=== PATIENT | female | born 1995 | race Caucasian/White ===

== ENCOUNTER 2017-04-19 15:34 | Emergency (ER) | payer OTHER ==
--- NOTE | 2017-04-19 16:05 | PD ---
HPI Chief Complaint ABD pain Date Seen: Apr 19, 2017 Travel History International Travel<30 Days: No Contact w/Intl Traveler<30Days: No History of Present Illness HPI Ms. Reynoso is a 22 y/o F presenting at 20/5 weeks gestation with ABD and L sided back pain. Patient states that after waking this morning she felt 6/10 pain on her L flank. She increased her oral fluids and has taken Tylenol with minimal improvement. She was able to take a short nap, however when she woke up her pain had relocated to her L hip crease consistent with round ligament pain. She then decided to present to the [facility]. Once arriving to the ED, she reports her pain has completely resolved. She endorses good movement and denies any vaginal bleeding, discharge, fluid loss, or dysuria. She was recently treated for a UTI with Nitrofurantoin and her symptoms have resolved. Otherwise she has no complaints and denies any fevers, chills, SOB, chest pain, NVD, or calf tenderness. Weeks Gestation: 20 Para: 0 : 1 History Past Medical History Medical History: Denies Significant Hx Obstetric History Obstetric History -Uncomplicated thus far Past Surgical History Surgical History: No Previous Surgery Family History Family History: Negative Social History Narrative Social History Of note, patient's recently committed suicide. Currently here from [place] to be with her parents. Alcohol Use: No Tobacco Use: No Substance Abuse: No Allergies-Medications Comments Penicillin Review of Systems Except as stated in HPI: all other systems reviewed are Neg (Per HPI) Physical Exam Narrative GENERAL: Well-nourished, well-developed patient. SKIN: Warm and dry. HEAD: Normocephalic and atraumatic. EYES: No scleral icterus. No injection or drainage. ENT: No nasal drainage noted. Mucous membranes pink. Airway patent. NECK: Supple, trachea midline. No JVD. CARDIOVASCULAR: Regular rate and rhythm without murmurs, gallops, or rubs. RESPIRATORY: Breath sounds equal bilaterally. No accessory muscle use. ABDOMEN/GI: Abdomen soft, non-tender, bowel sounds present, no rebound, no guarding Gravid to 20 weeks size GENITOURINARY: External Genitalia: intact and normal in appearance Cervix: Posterior Dilatation: Closed Effacement: Thick Station: -3 Membranes: Intact FHT's: 150s EXTREMITIES: No cyanosis or edema. BACK: Nontender without obvious deformity. No CVA tenderness. NEUROLOGICAL: Awake and alert. Motor and sensory grossly within normal limits. Five out of 5 muscle strength in all muscle groups. Normal speech. Data Data Vital Signs Reviewed: Yes [facility] Medical Record Reviewed: Yes Plan Ms. Reynoso is a 22 y/o at 20/5 weeks gestation with back and ABD pain. 1. IUP at 20 weeks -Continue routine antepartum care -Encourage PNV and oral hydration -FHTs 150s 2. Back pain -Likely musculoskeletal as it is bilateral, positional, and superficial -Urine Dipstick: Negative -Encouraged oral hydration -Tylenol as needed for pain, discouraged NSAIDs -Heating pad as needed 3. Round Ligament Pain -Encouraged oral hydration -Tylenol as needed for pain, discouraged NSAIDs -Heating pad as needed SDW: Dr. Tovar Diagnosis Diagnosis: Primary Impression: 20 weeks gestation of Additional Impressions: Round ligament pain Back strain Disposition: 01 DISCHARGE HOME Condition: Stable Patient Instructions: General Instructions, Abdominal Pain in (ED) Reji Ochoa MD R2 Apr 19, 2017 16:05
[2017-04-19 16:22] VITALS: BP 120/58; PULSE 89
[2017-04-19 16:30] VITALS: RESP 16
== END 2017-04-19 17:00 | disposition home or self-care (01) ==
LOC: HOBED 15:34
DX: O26.892 Other specified pregnancy related conditions, second trimester (principal); R10.2 Pelvic and perineal pain; S39.012A Strain of muscle, fascia and tendon of lower back, initial encounter; Z3A.20 20 weeks gestation of pregnancy; X58.XXXA Exposure to other specified factors, initial encounter
CPT/HCPCS: 99283